=== PATIENT | female | born 1965 | race Caucasian/White ===

== ENCOUNTER 2024-10-23 13:29 | Observation (INO) | payer OTHER ==
[2024-10-23 14:47] LABS: Basophils # (A) 0.03 10*3/uL (0.00-0.10); Basophils % (A) 0.5 %; Eosinophils # (A) 0.17 10*3/uL (0.04-0.35); Eosinophils % (A) 2.8 %; HCT 37.9 % (37.2-46.3); HGB 12.7 g/dL (12.0-15.0); Lymphocytes % (A) 42.2 %; MCH 28.5 pg (27.0-32.0); MCHC 33.5 g/dL (32.0-37.0); MCV 85.2 fL (80.0-97.0); Mean Platelet Volume 9.2 fL (9.5-12.2); Monocytes # (A) 0.57 10*3/uL (0.20-1.00); Monocytes % (A) 9.3 %; Neutrophils # (A) 2.77 10*3/uL (1.80-7.70); Neutrophils % (A) 44.9 %; Platelet Count 315 10*3/uL (140-440); RBC 4.45 10*6/uL (4.10-5.20); RDW 12.8 % (11.5-14.5); WBC 6.16 10*3/uL (4.50-10.00)
--- NOTE | 2024-10-23 14:52 | XR ---
EXAMINATION TYPE: XR chest 2V DATE OF EXAM: 10/23/2024 2:39 PM COMPARISON: None CLINICAL INDICATION: Female, 58 years old with history of Chest Pain; [facility] TECHNIQUE: XR chest 2V Frontal and lateral views of the chest. FINDINGS: Lungs/Pleura: There is no evidence of pleural effusion, focal consolidation, or pneumothorax. Pulmonary vascularity: Unremarkable. Heart/mediastinum: Cardiomediastinal silhouette is unremarkable. Musculoskeletal: No acute osseous pathology. Other findings: None IMPRESSION: No acute cardiopulmonary disease/process. [facility], , 10/23/2024 2:49 PM
[2024-10-23 15:10] LABS: ALT 23 U/L (4-34); AST 28 U/L (14-36); African American GFR (CKD) 55 (>60 ml/min/1.73 sqM); Albumin 4.6 g/dL (3.5-5.0); Alkaline Phosphatase 78 U/L (38-126); Anion Gap 11 mmol/L; Blood Urea Nitrogen 22 mg/dL (7-17); Calcium 10.4 mg/dL (8.4-10.2); Carbon Dioxide 25 mmol/L (22-30); Chloride 102 mmol/L (98-107); Glucose 92 mg/dL (74-99); Magnesium 2.1 mg/dL (1.6-2.3); Non-African American GFR(CKD) 48 (>60 ml/min/1.73 sqM); Potassium 3.7 mmol/L (3.5-5.1); Sodium 138 mmol/L (137-145); Total Bilirubin 0.7 mg/dL (0.2-1.3); Total Protein 7.1 g/dL (6.3-8.2)
[2024-10-23 15:19] LABS: INR 0.9 (<1.2); Partial Thromboplastin Time 23.7 sec (22.0-30.0); Prothrombin Time 10.4 sec (10.0-12.5)
--- NOTE | 2024-10-23 15:28 | ED ---
General Adult HPI - General Source: patient, RN notes reviewed Mode of arrival: ambulatory Limitations: no limitations <Nathan Mendoza - Last Filed: 10/23/24 15:28> <Eli Hampton - Last Filed: 10/23/24 18:51> - General Chief complaint: Chest Pain Stated complaint: SOB,Cough Time Seen by Provider: 10/23/24 13:40 - History of Present Illness Initial comments: 58-year-old female presents emergency department with chief complaint of increasing chest comfort, shortness of breath, cough. She states that she has been sick for several weeks in which she was seen at her PCP in urgent care she was placed on multiple different occasions with no relief. She states she has had a chronic change of TAVR chest sharp chest pain and pressure at times. Patient denies fevers currently patient states that she gets up to exert yourself she has worsening cough fits, worsening chest pain. Patient has no difficult leg swelling from her baseline no prior cardiac cath, does have a history of hypertension denies being a smoker no history of smoking no history of asthma. (Nathan Mendoza) - Related Data Allergies Allergy/AdvReac Type Severity Reaction Status Date / Time No Known Allergies Allergy Verified 10/23/24 13:43 Review of Systems ROS Other: All systems not noted in ROS Statement are negative. <Nathan Mendoza - Last Filed: 10/23/24 15:28> ROS Other: All systems not noted in ROS Statement are negative. <Eli Hampton - Last Filed: 10/23/24 18:51> ROS Statement: Those systems with pertinent positive or pertinent negative responses have been documented in the HPI. Past Medical History Past Medical History: Hypertension History of Any Multi-Drug Resistant Organisms: None Reported Past Surgical History: Section, Hysterectomy Past Psychological History: Depression Smoking Status: Never smoker Past Alcohol Use History: None Reported Past Drug Use History: None Reported <Nathan Mendoza - Last Filed: 10/23/24 15:28> General Exam Limitations: no limitations General appearance: alert, in no apparent distress Head exam: Present: atraumatic, normocephalic, normal inspection Eye exam: Present: normal appearance, PERRL, EOMI. Absent: scleral icterus, conjunctival injection, periorbital swelling ENT exam: Present: normal exam, normal oropharynx, mucous membranes moist Neck exam: Present: normal inspection, full ROM. Absent: tenderness, meningismus, lymphadenopathy Respiratory exam: Present: normal lung sounds bilaterally. Absent: respiratory distress, wheezes, rales, rhonchi, stridor Cardiovascular Exam: Present: regular rate, normal rhythm, normal heart sounds. Absent: systolic murmur, diastolic murmur, rubs, gallop, clicks GI/Abdominal exam: Present: soft, normal bowel sounds. Absent: distended, tenderness, guarding, rebound, rigid <Nathan Mendoza - Last Filed: 10/23/24 15:28> Course <Eli Hampton - Last Filed: 10/23/24 18:51> Vital Signs 10/23/24 10/23/24 13:40 18:00 Temperature 98.1 F Pulse Rate 77 72 Respiratory 16 17 Rate Blood Pressure 108/74 112/72 O2 Sat by Pulse 98 98 Oximetry - Reevaluation(s) Reevaluation #1: 10/23/24 16:00 Patient signed out to me from Nathan Mendoza PA-C at shift completion. (Eli Hampton) Reevaluation #2: 10/23/24 17:47 Admission accepted by [facility]STA Bae HEART score 2 (Eli Hampton) EKG Findings - EKG Comments: EKG Findings:: EKG performed at 13: 47 sinus rhythm with a rate of 75 CA 157 QRS 84 QT/QTc 370/406 - EKG Results: EKG: interpreted by ERMD <Nathan Mendoza - Last Filed: 10/23/24 15:28> Medical Decision Making - Lab Data Result diagrams: 10/23/24 14:30 10/23/24 14:30 <Nathan Mendoza - Last Filed: 10/23/24 15:28> - Lab Data Result diagrams: 10/23/24 14:30 10/23/24 14:30 - Radiology Data Radiology results: report reviewed, image reviewed <Eli Hampton - Last Filed: 10/23/24 18:51> - Medical Decision Making Was pt. sent in by a medical professional or institution (NAY Maguire, CREDIT CONSULTANT, urgent care, hospital, or senior care...) When possible be specific @ -No Did you speak to anyone other than the patient for history (EMS, parent, family, police, friend...)? What history was obtained from this source @ -No Did you review nursing and triage notes (agree or disagree)? Why? @ -I reviewed and agree with nursing and triage notes Were old charts reviewed (outside hosp., previous admission, EMS record, old EKG, old radiological studies, urgent care reports/EKG's, senior care records)? Report findings @ -No old charts were reviewed Differential Diagnosis (chest pain, altered mental status, abdominal pain women, abdominal pain men, vaginal bleeding, weakness, fever, dyspnea, syncope, hea dache, dizziness, GI bleed, back pain, seizure, CVA, palpatations, mental health, musculoskeletal)? @ -Differential Chest Pain:Stable Angina, Unstable Angina, STEMI, NSTEMI Aortic Dissection, Pneumothorax, Musculoskeletal, Esophageal Spasm GERD, Cholecystitis, Pancreatitis, Zoster, this is not meant to be an all-inclusive list. EKG interpreted by me (3pts min.). @ -As above X-rays interpreted by me (1pt min.). @ -CXR interpreted me negative for focal consolidations, pneumothorax or pleural effusions. CT interpreted by me (1pt min.). @ -CTA chest negative for acute pulmonary embolism or other acute pulmonary process. U/S interpreted by me (1pt. min.). @ -None done What testing was considered but not performed or refused? (CT, X-rays, U/S, labs)? Why? @ -None What meds were considered but not given or refused? Why? @ -None Did you discuss the management of the patient with other professionals (professionals i.e. , PA, CREDIT CONSULTANT, lab, RT, psych nurse, social research assistant, line crewman, teacher, resident medical officer, correctional counselor/case manager)? Give summary @ -Case discussed with Kathia MAGDALENO, accepts admission Was smoking cessation discussed for >3mins.? @ -No Was critical care preformed (if so, how long)? @ -No Were there social determinants of health that impacted care today? How? (Homelessness, low income, unemployed, alcoholism, drug addiction, transportation, low edu. Level, literacy, decrease access to med. care, detention, rehab)? @ -No Was there de-escalation of care discussed even if they declined (Discuss DNR or withdrawal of care, Hospice)? DNR status @ -No What co-morbidities impacted this encounter? (DM, HTN, Smoking, COPD, CAD, Cancer, CVA, ARF, Chemo, Hep., AIDS, mental health diagnosis, sleep apnea, morbid obesity)? @ -Hypertension Was patient admitted / discharged? Hospital course, mention meds given and route, prescriptions, significant lab abnormalities, going to OR and other pertinent info. @ -[Admitted. 58-year-old female presented the ER for evaluation increasing chest discomfort, shortness of breath and cough. Patient signed out to me from previous shift, Nathan Mendoza PA-C pending CTA chest and disposition. Vital signs stable. Laboratory studies obtained with an LIBORIO BUN 22, creatinine 1.2 with a GFR 48 for which patient received 1 L IV fluid bolus. Troponin undetectable. D-dimer negative at 0.35. CTA chest performed negative for acute pulmonary e mbolism or other acute pulmonary process. Patient provided aspirin. Admission was considered and accepted by Kathia MAGDALENO for cardiac rule out and further evaluation of hoarse voice. Serial troponins pending. Cardiology and ENT on consult. Patient agreeable and admitted in stable condition. Case discussed with ED attending, Dr. Horton. Undiagnosed new problem with uncertain prognosis? @ -No Drug Therapy requiring intensive monitoring for toxicity (Heparin, Nitro, Insulin, Cardizem)? @ -No Were any procedures done? @ -No Diagnosis/symptom? @ -Chest pain/hoarse voice Acute, or Chronic, or Acute on Chronic? @ -Acute Uncomplicated (without systemic symptoms) or Complicated (systemic symptoms)? @ -Complicated Side effects of treatment? @ -No Exacerbation, Progression, or Severe Exacerbation? @ -No Poses a threat to life or bodily function? How? (Chest pain, USA, VT, pneumonia, PE, COPD, DKA, ARF, appy, cholecystitis, CVA, Diverticulitis, Homicidal, Suicidal, threat to staff... and all critical care pts) @ -Yes, cannot rule out ACS (Eli Hampton) - Lab Data Lab Results 10/23/24 10/23/24 10/23/24 Range/Units 14:30 14:30 14:30 WBC 6.16 (4.50-10.00) 10*3/uL RBC 4.45 (4.10-5.20) 10*6/uL Hgb 12.7 (12.0-15.0) g/dL Hct 37.9 (37.2-46.3) % MCV 85.2 (80.0-97.0) fL MCH 28.5 (27.0-32.0) pg MCHC 33.5 (32.0-37.0) g/dL Plt Count 315 (140-440) 10*3/uL MPV 9.2 L (9.5-12.2) fL Immature Gran % (Auto) 0.3 % Neutrophils % 44.9 % Lymphocytes % 42.2 % Monocytes % 9.3 % Eosinophils % 2.8 % Basophils % 0.5 % Immature Gran # 0.02 (0.00-0.04) 10*3/uL Neutrophils # 2.77 (1.80-7.70) 10*3/uL Lymphocytes # 2.60 (0.90-5.00) 10*3/uL Monocytes # 0.57 (0.20-1.00) 10*3/uL Eosinophils # 0.17 (0.04-0.35) 10*3/uL Basophils # 0.03 (0.00-0.10) 10*3/uL PT 10.4 (10.0-12.5) sec INR 0.9 (<1.2) APTT 23.7 (22.0-30.0) sec D-Dimer 0.35 (<0.60) mg/L FEU Sodium 138 (137-145) mmol/L Potassium 3.7 (3.5-5.1) mmol/L Chloride 102 (98-107) mmol/L Carbon Dioxide 25 (22-30) mmol/L Anion Gap 11 mmol/L BUN 22 H (7-17) mg/dL Creatinine 1.24 H (0.52-1.04) mg/dL Est GFR (CKD-EPI)AfAm 55 (>60 ml/min/1.73 sqM) Est GFR (CKD-EPI)NonAf 48 (>60 ml/min/1.73 sqM) Glucose 92 (74-99) mg/dL Calcium 10.4 H (8.4-10.2) mg/dL Magnesium 2.1 (1.6-2.3) mg/dL Total Bilirubin 0.7 (0.2-1.3) mg/dL AST 28 (14-36) U/L ALT 23 (4-34) U/L Alkaline Phosphatase 78 (38-126) U/L Troponin I (0.000-0.034) ng/mL Total Protein 7.1 (6.3-8.2) g/dL Albumin 4.6 (3.5-5.0) g/dL 10/23/24 10/23/24 Range/Units 14:30 17:46 WBC (4.50-10.00) 10*3/uL RBC (4.10-5.20) 10*6/uL Hgb (12.0-15.0) g/dL Hct (37.2-46.3) % MCV (80.0-97.0) fL MCH (27.0-32.0) pg MCHC (32.0-37.0) g/dL Plt Count (140-440) 10*3/uL MPV (9.5-12.2) fL Immature Gran % (Auto) % Neutrophils % % Lymphocytes % % Monocytes % % Eosinophils % % Basophils % % Immature Gran # (0.00-0.04) 10*3/uL Neutrophils # (1.80-7.70) 10*3/uL Lymphocytes # (0.90-5.00) 10*3/uL Monocytes # (0.20-1.00) 10*3/uL Eosinophils # (0.04-0.35) 10*3/uL Basophils # (0.00-0.10) 10*3/uL PT (10.0-12.5) sec INR (<1.2) APTT (22.0-30.0) sec D-Dimer (<0.60) mg/L FEU Sodium (137-145) mmol/L Potassium (3.5-5.1) mmol/L Chloride (98-107) mmol/L Carbon Dioxide (22-30) mmol/L Anion Gap mmol/L BUN (7-17) mg/dL Creatinine (0.52-1.04) mg/dL Est GFR (CKD-EPI)AfAm (>60 ml/min/1.73 sqM) Est GFR (CKD-EPI)NonAf (>60 ml/min/1.73 sqM) Glucose (74-99) mg/dL Calcium (8.4-10.2) mg/dL Magnesium (1.6-2.3) mg/dL Total Bilirubin (0.2-1.3) mg/dL AST (14-36) U/L ALT (4-34) U/L Alkaline Phosphatase (38-126) U/L Troponin I <0.012 <0.012 (0.000-0.034) ng/mL Total Protein (6.3-8.2) g/dL Albumin (3.5-5.0) g/dL Disposition <Nathan Mendoza - Last Filed: 10/23/24 15:28> Time of Disposition: 17:50 <Eli Hampton - Last Filed: 10/23/24 18:51> Clinical Impression: Chest pain, Hoarseness of voice Disposition: ADMITTED IP TO THIS HOSP Condition: Stable Referrals: Paty Powers MD [Primary Care Provider] - 1-2 days
--- NOTE | 2024-10-23 17:16 | CT ---
EXAMINATION TYPE: CT chest angio for PE DATE OF EXAM: 10/23/2024 4:48 PM COMPARISON: Chest radiograph from same day. CLINICAL INDICATION: Female, 58 years old with history of pain, SOB; Cough, SOB TECHNIQUE/CONTRAST: CTA scan of the thorax is performed with IV Contrast, patient injected with 70 mL of Isovue 370, MIP images are created and reviewed these are created on a separate workstation.. CT DLP: 476 mGycm, Automated exposure control for dose reduction was used. FINDINGS: Lungs/Pleura: No evidence of focal consolidation, pleural effusion or pneumothorax. Airway: Large airways are patent. Heart: Size within normal limits. No significant coronary artery calcifications. Vasculature: There is no evidence for a filling defect within the pulmonary vasculature to suggest ac belkofski pulmonary embolism. The pulmonary artery is of normal size. Mediastinum: No gross evidence of adenopathy. Musculoskeletal: Mild disc degeneration changes are present throughout the thoracolumbar spine second debbie to osteophyte formation and facet joint arthropathy. Soft Tissues/lymph nodes: Unremarkable. Lower neck: No significant findings. Upper Abdomen: Simple appearing left renal cortical cysts no follow-up recommended. Parapelvic left r enal cyst suggested. IMPRESSION: 1. No evidence of pulmonary embolism. 2. No evidence for acute process. [facility], , 10/23/2024 5:13 PM
[2024-10-23] MEDS ORDERED: ACETAMINOPHEN TAB 325 MG TAB PO PRN (17:47)
[2024-10-23] MEDS ORDERED: NALOXONE 0.4 MG/ML 1 ML VIAL IV PRN (17:47)
[2024-10-23] MEDS: ASPIRIN 81 MG PO STA (18:06)
[2024-10-23] MEDS: SODIUM CHLORIDE 0.9% 1,000 ML IV ONE (18:07)
[2024-10-24] MEDS ORDERED: BENZONATATE 100 MG CAP PO PRN (06:37)
[2024-10-24] MEDS ORDERED: GABAPENTIN 300 MG CAP PO PRN (06:37)
[2024-10-24] MEDS ORDERED: SUMAtriptan succinate 50 MG TAB PO PRN (06:37)
[2024-10-24] MEDS ORDERED: DOBUTamine DRIP for NUC MED 500 MG/250 ML BAG IV ONE (08:00)
[2024-10-24] MEDS: TOPIRAMATE 25 MG TAB PO SCH (08:26)
[2024-10-24] MEDS: FLUoxetine HCL 20 MG CAP PO SCH (08:26)
[2024-10-24] MEDS: hydrALAZINE HCL 25 MG TAB PO SCH (08:26)
[2024-10-24] MEDS ORDERED: DOBUTamine DRIP for NUC MED 500 MG in DEXTROSE/WATER 1 250ML.BAG IV PRN (09:30)
[2024-10-24 11:18] LABS: African American GFR (CKD) 64 (>60 ml/min/1.73 sqM); Anion Gap 6 mmol/L; Blood Urea Nitrogen 15 mg/dL (7-17); Calcium 9.6 mg/dL (8.4-10.2); Carbon Dioxide 28 mmol/L (22-30); Chloride 104 mmol/L (98-107); Glucose 91 mg/dL (74-99); Non-African American GFR(CKD) 55 (>60 ml/min/1.73 sqM); Potassium 3.6 mmol/L (3.5-5.1); Sodium 138 mmol/L (137-145)
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
[2024-10-24 13:04] VITALS: RESP 20
--- NOTE | 2024-10-24 16:15 | P.CNPUL ---
History of Present Illness Consult date: 10/24/24 Requesting physician: Derick Powers Reason for consult: cough Chief complaint: 6 weeks history of cough History of present illness: This is a 58-year-old female history of hypertension, dyslipidemia, migraine cephalgia, patient has been complaining of cough for the last 6 weeks. Has been tried on multiple courses of antibiotics, and multiple courses of steroids, longest course of steroid was given for 7 days burst and taper. Patient has not been doing well, her cough is dry cough, nonproductive, she got to the point where she has been losing her voice from her excessive cough. No clear-cut evidence of any provoking factor for her cough. Patient does not have any history of asthma does not smoke, she does not have any symptoms of GERD, she does have symptoms of allergic rhinitis, and she has been on lisinopril for almost 3 years. Workup in the ER included a CT angiogram of the chest and chest x-ray, workup was negative. Hence this consult was initiated. Patient denies any fever denies any chills denies any hemoptysis, denies any chest pain. And she denies any symptoms of active GERD. Review of Systems REVIEW OF SYSTEMS: CONSTITUTIONAL: Negative. EYES: Negative. ENT: Chronic symptoms of allergic rhinitis CARDIAC: Negative. PULMONARY: As noted in HPI GI: Negative. GENITOURINARY: Negative. MUSCULOSKELETAL: Negative. SKIN: Negative. NEUROPSYCH: Negative. ENDOCRINE: Negative. HEMATOLOGIC: Negative. Past Medical History Past Medical History: Hypertension History of Any Multi-Drug Resistant Organisms: None Reported Past Surgical History: Section, Hysterectomy Past Psychological History: Depression Smoking Status: Never smoker Past Alcohol Use History: None Reported Past Drug Use History: None Reported Medications and Allergies Home Medications Medication Instructions Recorded Confirmed Type Atorvastatin [Lipitor] 20 mg PO HS 10/23/24 10/23/24 History Benzonatate [Tessalon Perle] 200 mg PO TID PRN 10/23/24 10/23/24 History FLUoxetine HCL [PROzac] 40 mg PO DAILY 10/23/24 10/23/24 History Gabapentin 300 mg PO HS PRN 10/23/24 10/23/24 History SUMAtriptan succinate [Imitrex] 50 mg PO BID PRN MDD 100 mg 10/23/24 10/23/24 History Topiramate 50 mg PO BID 10/23/24 10/23/24 History hydrALAZINE HCL [Apresoline] 25 mg PO BID 10/23/24 10/23/24 History Albuterol Inhaler [Ventolin Hfa 1 - 2 puff INHALATION Q6H PRN #1 10/24/24 Rx Inhaler] each Losartan [Cozaar] 25 mg PO DAILY #30 tab 10/24/24 Rx predniSONE 0 mg PO DIRECTED 40 Days #55 tab 10/24/24 Rx Allergies Allergy/AdvReac Type Severity Reaction Status Date / Time No Known Allergies Allergy Verified 10/23/24 20:25 Physical Exam Vitals: Vital Signs Temp Pulse Resp BP Pulse Ox 10/24/24 16:04 98.4 F 77 20 108/76 97 10/24/24 14:33 98.1 F 82 20 106/75 99 10/24/24 13:02 97.9 F 72 20 126/72 97 10/24/24 08:27 98.1 F 76 118/78 99 10/24/24 06:20 97.8 F 77 18 103/71 97 10/24/24 04:00 75 18 98 10/24/24 02:11 97.9 F 75 19 100/74 97 10/23/24 21:05 71 18 105/75 97 10/23/24 18:00 72 17 112/72 98 General: The patient is awake and alert, in no distress, and does not appear acutely ill. Skin: Skin is warm and dry and no rashes or lesions are noted. Eye: Pupils are equal, round and reactive to light, extra-ocular movements are intact; there is normal conjunctiva bilaterally. Ears, nose, mouth and throat: There are moist mucous membranes and no oral lesions. Neck: The neck is supple, there is no tenderness or JVD. Cardiovascular: There is a regular rate and rhythm. No murmur, rub or gallop is appreciated. Respiratory: Clear bilaterally no crackles rhonchi or wheezes Gastrointestinal: Soft, non-distended, non-tender abdomen without masses or organomegaly noted. There is no rebound or guarding present. Bowel sounds are u nremarkable. Back: There is no tenderness to palpation in the midline. There is no obvious deformity. Musculoskeletal: Normal ROM, no tenderness, There is no pedal edema. There is no calf tenderness or swelling. No cords were appreciated. Neurological: CN II-XII intact, Cranial nerves III through XII are intact. There are no obvious motor or sensory deficits. Coordination appears grossly int act. Speech is normal. Psychiatric: Cooperative, appropriate mood & affect, normal judgment. Results - Laboratory Findings CBC and BMP: 10/23/24 14:30 10/24/24 10:44 PT/INR, D-dimer PT 10.4 sec (10.0-12.5) 10/23/24 14:30 INR 0.9 (<1.2) 10/23/24 14:30 D-Dimer 0.35 mg/L FEU (<0.60) 10/23/24 14:30 Abnormal lab findings: Abnormal Labs 10/23/24 10/23/24 10/24/24 14:30 14:30 10:44 MPV 9.2 L BUN 22 H Creatinine 1.24 H 1.10 H Calcium 10.4 H - Diagnostic Findings CT scan - chest: image reviewed (As noted in HPI) Assessment and Plan Assessment: Impression: Chronic cough, most likely secondary to lisinopril and could be exacerbated by symptoms of allergic rhinitis. History of seasonal allergic rhinitis Benign essential hypertension dyslipidemia Atypical chest pain as noted by cardiology, acute coronary syndrome was ruled out.. Migraine cephalgia Recommendation: Reviewed and discussed with the patient her symptoms/cough Reviewed and discussed with the patient her CT of the chest and is basically negative Advised patient to go on a course of prednisone 30 mg tapered over 3 to 4 weeks Advised patient to stop lisinopril and replace with losartan or by any other medications that is not an CHRISSY inhibitor as recommended by her primary care physician Advised patient to consider ENT evaluation since she has lost her voice from excessive coughing Conservative measures including cough suppressants Patient can see me in the office in 1 to 2 weeks postdischarge. [id number] medications for allergic rhinitis and nasal drip. Patient was cleared for discharge if cleared by other consultants. Time with Patient: Greater than 30
--- NOTE | 2024-10-24 18:00 | CA ---
Transthoracic Echo Report Name: Shubham Johnston Age: 58 Gender: F : 1965 Exam Date: 10/24/2024 12:28 Exam Location: [facility] Ht (in): 71 Wt (lb): 285 Ordering Physician: Lisha Reis Attending/Referring Phys: [id number], Smiley Med Asst Rupali Romero RDCS Procedure CPT: Indications: LVF, CP Cardiac Hx: Technical Quality: Good Contrast 1: Total Dose (mL): Contrast 2: Total Dose (mL): MEASUREMENTS (Male / Female) Normal Values 2D ECHO LV Diastolic Diameter PLAX 4.8 cm 4.2 - 5.9 / 3.9 - 5.3 cm LV Systolic Diameter PLAX 2.9 cm IVS Diastolic Thickness 0.9 cm 0.6 - 1.0 / 0.6 - 0.9 cm LVPW Diastolic Thickness 1.1 cm 0.6 - 1.0 / 0.6 - 0.9 cm LV Relative Wall Thickness 0.4 RV Internal Dim ED PLAX 3.4 cm LA Systolic Diameter LX 3.7 cm 3.0 - 4.0 / 2.7 - 3.8 cm LV Diastolic Volume MOD 4C 88.8 cm??? LV Systolic Volume MOD 4C 43.3 cm??? LV Ejection Fraction MOD 4C 51.2 % LV Cardiac Index MOD 4C 1539.0 cm???/min???m??? LV Diastolic Length 4C 8.2 cm LV Systolic Length 4C 6.9 cm LV Diastolic Volume MOD 2C 82.3 cm??? LV Systolic Volume MOD 2C 34.7 cm??? LV Ejection Fraction MOD 2C 57.9 % LV Cardiac Index MOD 2C 1614.3 cm???/min???m??? LV Diastolic Length 2C 8.4 cm LV Systolic Length 2C 6.8 cm M-MODE Aortic Root Diameter MM 4.0 cm AV Cusp Separation MM 2.6 cm DOPPLER AV Peak Velocity 122.4 cm/s AV Peak Gradient 6.0 mmHg Mitral E Point Velocity 64.4 cm/s Mitral A Point Velocity 73.2 cm/s Mitral E to A Ratio 0.9 MV Deceleration Time 265.5 ms MV E' Velocity 7.4 cm/s Mitral E to MV E' Ratio 8.6 TR Peak Velocity 194.0 cm/s TR Peak Gradient 15.0 mmHg Right Ventricular Systolic Press 25.0 mmHg FINDINGS Left Ventricle Left ventricular ejection fraction is estimated at 55-60 %. Left ventricular cavity size normal. No obvious regional wall motion abnormalities. Right Ventricle Normal right ventricular size.right ventricular systolic pressure within normal limits. Right Atrium Normal right atrial size. No right atrial thrombus or mass seen. Left Atrium Normal left atrial size. No left atrial thrombus or mass present. Mitral Valve Structurally normal mitral valve. No mitral stenosis, or prolapse.mild mitral regurgitation. Aortic Valve Trileaflet aortic valve. No aortic valve stenosis or regurgitation. Tricuspid Valve Structurally normal tricuspid valve. No tricuspid stenosis, regurgitation or prolapse. Pulmonic Valve Structurally normal pulmonic valve. No pulmonic regurgitation. Pericardium No pericardial effusion. Aorta Mild aortic dilatation at the level of the sinuses of valsalva 40 mm CONCLUSIONS 1. Normal left ventricular size and systolic function 2. Mild mitral regurgitation 3. Mildly dilated ascending aorta. Previewed by: Dr. Christ Aldana MD (Electronically Signed) Final Date: 24 October 2024 17:59
--- NOTE | 2024-10-24 18:02 | CA ---
Dobutamine Stress Echocardiogram Report Shubham Johnston Age: 58 Gender: F : 1965 Exam Date: 10/24/2024 12:06 Exam Location: [facility] Ordering Physician: Lisha Reis Referring Physician: Smiley IVY Lav Crewman: CHRIS, Technologist: Ht (in): 66 Wt (lb): 195 Procedure CPT: Indication: Chest Pain ICD-9 Codes: Rhythm: Patient History: Cardiac Medications: SEE CHART,,,,, Medications in past 24 hours: Contrast: N/A Total Dose (mL): NA Stress Results Protocol: Dobutamine Peak Dose (???g/kg/min): 30 Duration (min:sec): Atropine:(mg) None Target HR: 137 Double Product: 27917 Resting HR: 71 Resting BP: 105 / 69 Peak HR: 143 Peak BP: 97 / 63 Max Predicted HR: 161 89 % Max Predicted HR Stress Summary: BP Response: Reason for Termination: Target HR Cardiac Symptoms: NO SYMPTOMS ECG Analysis Resting EKG: Normal sinus rhythm, Resting ST/T wave changes Stress EKG: Exaggeration of the baseline ST abnormality Arrhythmia: Occasional PVCs Echo Analysis Base Echo Analysis: Normal resting echocardiogram. Low Echo Anaylsis: Normal wall thickening and motion Peak Echo Analysis: Normal wall motion augmentation with decrease in the cavity size Recovery Echo: Normal segmental wall motion MEASUREMENTS (Male/Female) Normal Values CONCLUSIONS Nondiagnostic electrocardiographic response to dobutamine infusion secondary to baseline EKG abnormality Normal stress echocardiogram with no evidence of stress-induced ischemia Dr. Christ Aldana MD (Electronically Signed) Final Date: 24 October 2024 18:01
[2024-10-24 18:24] VITALS: BP 106/69; PULSE 76; TEMP 98.1
[2024-10-24] MEDS ORDERED: ATORVASTATIN 20 MG TAB PO SCH (21:00)
--- NOTE | 2024-10-26 19:37 | P.HPIM ---
History of Present Illness H&P Date: 10/24/24 This is a pleasant 68-year-old female with medical history significant for hypertension, hyperlipidemia, migraines. Patient has been dealing with this hoarseness of her voice and cough which is nonproductive for the last 6 weeks. She has completed multiple courses of steroids and antibiotics from her PCP and also urgent care center and her symptoms have persisted. Her cough is worse with exertion. Patient also reported an episode of double vision yesterday. Patient was recommended to come to the hospital for evaluation because of this episode of double vision which had occurred while she was driving. Patient had some tightness in her chest which was worse with deep breathing and exertion. Which is also ongoing for a couple weeks. She has no prior history of asthma or COPD and has not been evaluated by janitorial services supervisor in the past. She has no prior history of stroke or seizure. She has no history of cardiac stenting or myocardial infarction. On admission her blood reveals a white blood cell count of 6.16, hemoglobin 12.7, sodium of 138 potassium 3.7, BUN of 22 creatinine 1.24, calcium 10.4. Troponin level was negative x 2. Her procalcitonin level was normal at less than 0.20. She has been afebrile. She is saturating 97% on room air. Chest CT angiography reveals no evidence of pulmonary embolism and no evidence for acute process. Dobutamine stress echo was a normal stress echocardiogram with no evidence of stress-induced ischemia Echocardiogram reveals an EF of 55 to 60% with mild MR and a mildly dilated ascending aorta. She was admitted to the hospital a consult placed to cardiology and pulmonology services. REVIEW OF SYSTEMS: CONSTITUTIONAL: No fever, no malaise, no fatigue. HEENT: No recent visual problems or hearing problems. Denied any sore throat. CARDIOVASCULAR: No chest pain, orthopnea, PND, no palpitations, no syncope. PULMONARY: No shortness of breath, no cough, no hemoptysis. GASTROINTESTINAL: No diarrhea, no nausea, no vomiting, no abdominal pain. NEUROLOGICAL: No headaches, no weakness, no numbness. HEMATOLOGICAL: Denies any bleeding or petechiae. GENITOURINARY: Denies any burning micturition, frequency, or urgency. MUSCULOSKELETAL/RHEUMATOLOGICAL: Denies any joint pain, swelling, or any muscle pain. ENDOCRINE: Denies any polyuria or polydipsia. The rest of the 14-point review of systems is negative. PHYSICAL EXAMINATION: GENERAL: The patient is alert and oriented x3, not in any acute distress. Well developed, well nourished. HEENT: Pupils are round and equally reacting to light. EOMI. No scleral icterus. No conjunctival pallor. Normocephalic, atraumatic. No pharyngeal erythema. No thyromegaly. CARDIOVASCULAR: S1 and S2 present. No murmurs, rubs, or gallops. PULMONARY: Chest is clear to auscultation, no wheezing or crackles. ABDOMEN: Soft, nontender, nondistended, normoactive bowel sounds. No palpable organomegaly. MUSCULOSKELETAL: No joint swelling or deformity. EXTREMITIES: No cyanosis, clubbing, or pedal edema. NEUROLOGICAL: Gross neurological examination did not reveal any focal deficits. SKIN: No rashes. Assessment Laryngitis Chest pain musculoskeletal Hypertension Hyperlipidemia Migraines Mild LIBORIO prerenal Hypercalcemia dehydrational Obesity GI prophylaxis Plan Dobutamine stress echocardiogram has been reviewed and patient has been cleared by cardiology for discharge Pending pulmonology consultation Recommend ENT follow-up on an outpatient basis for the continued laryngitis no need for antibiotics at this time Patient may benefit from an albuterol inhaler as it may be a component of underlying asthma I would recommend a pulmonary function test on an outpatient basis Possible discharge home later this afternoon The impression and plan of care has been dictated by Kirti Morel Nurse Practitioner as directed. Dr. Shellie MD I have performed a history and physical examination and medical decision making of this patient, discussed the same with the dictator, and agree with the dictators assessment and plan as written, documented as a scribe. Based on total visit time, I have performed more than 50% of this visit. Past Medical History Past Medical History: Hypertension History of Any Multi-Drug Resistant Organisms: None Reported Past Surgical History: Section, Hysterectomy Past Psychological History: Depression Smoking Status: Never smoker Past Alcohol Use History: None Reported Past Drug Use History: None Reported Medications and Allergies Home Medications Medication Instructions Recorded Confirmed Type Atorvastatin [Lipitor] 20 mg PO HS 10/23/24 10/23/24 History Benzonatate [Tessalon Perle] 200 mg PO TID PRN 10/23/24 10/23/24 History FLUoxetine HCL [PROzac] 40 mg PO DAILY 10/23/24 10/23/24 History Gabapentin 300 mg PO HS PRN 10/23/24 10/23/24 History SUMAtriptan succinate [Imitrex] 50 mg PO BID PRN MDD 100 mg 10/23/24 10/23/24 History Topiramate 50 mg PO BID 10/23/24 10/23/24 History hydrALAZINE HCL [Apresoline] 25 mg PO BID 10/23/24 10/23/24 History Albuterol Inhaler [Ventolin Hfa 1 - 2 puff INHALATION Q6H PRN #1 10/24/24 Rx Inhaler] each Losartan [Cozaar] 25 mg PO DAILY #30 tab 10/24/24 Rx predniSONE 0 mg PO DIRECTED 40 Days #55 tab 10/24/24 Rx Allergies Allergy/AdvReac Type Severity Reaction Status Date / Time No Known Allergies Allergy Verified 10/23/24 20:25 Physical Exam Vitals: Vital Signs Temp Pulse Resp BP Pulse Ox 10/24/24 14:33 98.1 F 82 20 106/75 99 10/24/24 13:02 97.9 F 72 20 126/72 97 10/24/24 08:27 98.1 F 76 118/78 99 10/24/24 06:20 97.8 F 77 18 103/71 97 10/24/24 04:00 75 18 98 10/24/24 02:11 97.9 F 75 19 100/74 97 10/23/24 21:05 71 18 105/75 97 10/23/24 18:00 72 17 112/72 98 Results CBC & Chem 7: 10/23/24 14:30 10/24/24 10:44 Labs: Abnormal Lab Results - Last 24 Hours (Table) 10/24/24 Range/Units 10:44 Creatinine 1.10 H (0.52-1.04) mg/dL Assessment and Plan Time with Patient: Greater than 30
--- NOTE | 2024-10-26 19:40 | P.DS ---
Providers Date of admission: 10/23/24 17:42 Attending physician: Derick Powers Consults: 10/23/24 17:47 Consult Physician Urgent Consulting Provider: [facility] Consult Reason/Comments: chest pain Do you want consulting provider notified?: Yes Consult Physician Urgent Consulting Provider: Thad Bailey Consult Reason/Comments: hoarse voice x6 weeks Do you want consulting provider notified?: Yes 10/24/24 09:21 Consult Physician Routine Consulting Provider: Mango Lema Consult Reason/Comments: Bronchitis, Do you want consulting provider notified?: Yes Primary care physician: Paty Powers MD Hospital Course: Final Diagnosis Laryngitis Chronic cough suspect because of lisinopril Chest pain musculoskeletal Hypertension currently normotensive Hyperlipidemia Migraines Mild LIBORIO prerenal Hypercalcemia dehydrational Obesity Discharge Disposition Patient stable for discharge home from a cardiac and pulmonology standpoint. Patient is recommended to stop her lisinopril as this may be the culprit for her chronic cough which has been leading to this laryngitis. There may also be component of seasonal allergies versus asthma. Recommend [id number] medications including Claritin and Flonase as well as albuterol inhaler as needed. Patient is instructed to check her blood pressure at the same time every day and keep a log for follow-up with her PCP and station captain. If her blood pressure becomes elevated over 135/90 consistently patient was discharged with losartan 25 mg daily to take. She should not take an CHRISSY inhibitor. Hospital Course This is a pleasant 68-year-old female with medical history significant for hypertension, hyperlipidemia, migraines. Patient has been dealing with this hoarseness of her voice and cough which is nonproductive for the last 6 weeks. She has completed multiple courses of steroids and antibiotics from her PCP and also urgent care center and her symptoms have persisted. Her cough is worse with exertion. Patient also reported an episode of double vision yesterday. Patient was recommended to come to the hospital for evaluation because of this episode of double vision which had occurred while she was driving. Patient had some tightness in her chest which was worse with deep breathing and exertion. Which is also ongoing for a couple weeks. She has no prior history of asthma or COPD and has not been evaluated by principal software architect in the past. She has no prior history of stroke or seizure. She has no history of cardiac stenting or myocardial infarction. On admission her blood reveals a white blood cell count of 6.16, hemoglobin 12.7, sodium of 138 potassium 3.7, BUN of 22 creatinine 1.24, calcium 10.4. Troponin level was negative x 2. Her procalcitonin level was normal at less than 0.20. She has been afebrile. She is saturating 97% on room air. Chest CT angiography reveals no evidence of pulmonary embolism and no evidence for acute process. Dobutamine stress echo was a normal stress echocardiogram with no evidence of stress-induced ischemia. Echocardiogram reveals an EF of 55 to 60% with mild MR and a mildly dilated ascending aorta. She was admitted to the hospital a consult placed to cardiology and pulmonology services. Patient had negative cardiac workup. She is not reporting any chest pain at this time. Her lungs are clear to auscultation. Please see medication reconciliation for a list of current medications. Thank you for allowing us to participate in the care of this patient. The impression and plan of care has been dictated by Kirti Morel, Nurse Practitioner as directed. Dr. Shellie MD I have performed a history and physical examination and medical decision making of this patient, discussed the same with the dictator, and agree with the dictators assessment and plan as written, documented as a scribe. Based on total visit time, I have performed more than 50% of this visit. Patient Condition at Discharge: Stable Plan - Discharge Summary New Discharge Prescriptions: New Losartan [Cozaar] 25 mg PO DAILY #30 tab Albuterol Inhaler [Ventolin Hfa Inhaler] 1 - 2 puff INHALATION Q6H PRN #1 each PRN Reason: Shortness Of Breath Or Wheezing predniSONE 0 mg PO DIRECTED 40 Days #55 tab Continue hydrALAZINE HCL [Apresoline] 25 mg PO BID FLUoxetine HCL [PROzac] 40 mg PO DAILY Atorvastatin [Lipitor] 20 mg PO HS Topiramate 50 mg PO BID SUMAtriptan succinate [Imitrex] 50 mg PO BID PRN MDD 100 mg PRN Reason: Migraine Headache Benzonatate [Tessalon Perle] 200 mg PO TID PRN PRN Reason: Cough Gabapentin 300 mg PO HS PRN PRN Reason: Pain Discontinued Lisinopril-Hctz 20-25 mg [Zestoretic 20-25] 1 tab PO DAILY Discharge Medication List Atorvastatin [Lipitor] 20 mg PO HS 10/23/24 [History] Benzonatate [Tessalon Perle] 200 mg PO TID PRN 10/23/24 [History] FLUoxetine HCL [PROzac] 40 mg PO DAILY 10/23/24 [History] Gabapentin 300 mg PO HS PRN 10/23/24 [History] SUMAtriptan succinate [Imitrex] 50 mg PO BID PRN MDD 100 mg 10/23/24 [History] Topiramate 50 mg PO BID 10/23/24 [History] hydrALAZINE HCL [Apresoline] 25 mg PO BID 10/23/24 [History] Albuterol Inhaler [Ventolin Hfa Inhaler] 1 - 2 puff INHALATION Q6H PRN #1 each 10/24/24 [Rx] Losartan [Cozaar] 25 mg PO DAILY #30 tab 10/24/24 [Rx] predniSONE 0 mg PO DIRECTED 40 Days #55 tab 10/24/24 [Rx] Follow up Appointment(s)/Referral(s): Mango Lema MD [STAFF PHYSICIAN] - 1 Week Christ Aldana MD [STAFF PHYSICIAN] - 1 Week (Cardiology) Paty Powers MD [Primary Care Provider] - 1-2 days Thad Bailey MD [STAFF PHYSICIAN] - 1 Week (ENT) Ambulatory/Diagnostic Orders: Basic Metabolic Panel [LAB.AMB] Time Frame: 3 Days, Location: None Selected Activity/Diet/Wound Care/Special Instructions: Recommend to stop the hydrochlorothiazide/lisinopril combination take your blood pressure at the same time every day in the evening. recommend to sit down and rest for 20 minutes prior to take BP if it is consistently elevated greater than 135/90 begin taking the losartan 25 mg daily. Use albuterol inhaler PRN for shortness of breath or wheezing Follow up with an ENT specialist for the laryngitis Follow up with principal software architect as so bundy Discharge Disposition: HOME SELF-CARE
== END 2024-10-24 18:30 | disposition home or self-care (01) ==
LOC: EC 13:29 → 6NMEDSUR 17:42
PROVIDERS: ADMIT Hospitalist; ATTEND Hospitalist
DX: R07.89 Other chest pain (principal); J04.0 Acute laryngitis; J40 Bronchitis, not specified as acute or chronic; N17.9 Acute kidney failure, unspecified; E66.9 Obesity, unspecified; E78.5 Hyperlipidemia, unspecified; E83.52 Hypercalcemia; F32.A Depression, unspecified; G43.909 Migraine, unspecified, not intractable, without status migrainosus; I10 Essential (primary) hypertension; Z79.899 Other long term (current) drug therapy; Z79.52 Long term (current) use of systemic steroids
CPT/HCPCS: 96360; 96361; 99285; 36415; 93005; 93306; 93351; 85379; 80053; 80048; 83735; 84484; 85025; 85610; 85730; 84145; 71046; 71275; G0378 ×2; J1250; Q9967